=== PATIENT | female | born 1940 | race Caucasian/White ===

== ENCOUNTER 2021-12-29 14:34 | Inpatient (IN) | payer MEDICARE, BC ==
[~2021-12-29] VITALS: Ht 152.4 cm; Wt 58.9 kg
[2021-12-29 14:00] VITALS: BP 153/91
[2021-12-29] MEDS ORDERED: IODIXANOL 320 MG/ML 100 ML VIAL. ONE (14:38)
[2021-12-29] MEDS ORDERED: LIDOCAINE 1% Multi-Dose 20 ML VIAL. ONE (14:38)
[2021-12-29 14:39] VITALS: BP 198/84
[2021-12-29] MEDS ORDERED: fentaNYL PF VIAL 100 MCG/2 ML VIAL ONE (14:52)
[2021-12-29] MEDS ORDERED: MIDAZOLAM HCL/PF 2 MG/2 ML VIAL. ONE (14:53)
[2021-12-29] MEDS ORDERED: Trulicity SQ (15:00)
[2021-12-29] MEDS ORDERED: PANT40TA77 PO (15:00)
[2021-12-29] MEDS ORDERED: EZET10TA20 PO (15:00)
[2021-12-29] MEDS ORDERED: CRESTOR40 MG PO (15:00)
[2021-12-29] MEDS ORDERED: AMLO2.5T5 PO (15:00)
[2021-12-29] MEDS ORDERED: IBAN150T20 PO (15:00)
[2021-12-29] MEDS ORDERED: SERT50TA PO (15:00)
[2021-12-29] MEDS ORDERED: ASPI-630 PO (15:00)
[2021-12-29] MEDS ORDERED: CHOL200044 PO (15:00)
[2021-12-29] MEDS ORDERED: GABA600T7 PO (15:00)
[2021-12-29] MEDS ORDERED: FAMO20TA5 PO (15:00)
[2021-12-29] MEDS ORDERED: MIDAZOLAM HCL/PF 2 MG/2 ML VIAL. IV ONE (15:15)
[2021-12-29] MEDS ORDERED: IODIXANOL 320 MG/ML 100 ML VIAL. IART ONE (15:15)
[2021-12-29] MEDS ORDERED: LIDOCAINE 1% Multi-Dose 20 ML VIAL. INJ ONE (15:15)
[2021-12-29] MEDS ORDERED: fentaNYL PF VIAL 100 MCG/2 ML VIAL IV ONE (15:15)
[2021-12-29 15:38] VITALS: BP 147/72
--- NOTE | 2021-12-29 17:04 | CARD ---
MR#: [id number] Date of Study: 12/29/2021 Ordering Physician: MANJEET CALLAWAY, Referring Physician: MANJEET CALLAWAY, Tech: Shantel Peterson RTR APPROVED REPORT Technologist: Shantel Peterson RTR Nurse: Cleopatra Chacon RN Procedure(s) performed: Fluoro time: 6.9 min Dose: 20.9 gymc2 contrast: 72cc visi moderate sedation: 39 min INDICATION The indication(s) include : unstable angina . CSHA Clinical Frailty Scale CSHA Clinical Frailty Scale: Managing Well Heart Failure Heart Failure: No PROCEDURE NARRATIVE Clinical information: 81-year-old woman with a past medical history of bypass and PCI to the RCA presents for chest discomf ort. Procedure details: After appropriate informed consent the right groin was prepped and draped in usual sterile fashion. Under 1% lidocaine local anesthesia a 6 Guamanian sheath was placed in the right common femoral artery. Due to significant prior catheterizations and fibrosis the insertion of the sheath was difficult and required dilation with serial 4 Guamanian and 5 Guamanian dilators. Ultimately, a 6 Guamanian sheath was johan nirmala. Next diagnostic angiography was then performed with a JL 3.5, JR4, PHANI catheters. Left ventric ular end-diastolic pressure was obtained with a pigtail catheter pullback was performed after left ve ntriculography. At case completion the catheters and sheaths were removed and hemostasis was achieve d via a Angio-Seal device. Findings: LVEDP 10 mmHg No LV to aortic pullback gradient Left ventriculogram demonstrates normal LV systolic function with an EF of greater than 60%. Coronary angiography: Left main is a long moderate caliber vessel with normal angiographic appearance LAD is a moderate caliber vessel with a proximal 100% occlusion at the site of a previous stent Left circumflex is a small caliber nondominant vessel with a proximal 100% occlusion of a previously placed stent RCA is a large-caliber dominant vessel with patent stents in the midsegment with moderate diffuse dis ease of up to 40 to 50%. Bypass angiography: GARCIA to the LAD is widely patent without anastomotic stenosis SVG sequential graft to the ramus and OM1 is patent without anastomotic stenosis Conclusion 1. Normal left-sided filling pressures 2. Normal LV systolic function, EF greater than 60% 3. Three-vessel coronary artery disease with 3 of 3 bypass grafts patent. Recommendations Aggressive Medical Therapy Signed by : Manjeet Callaway, Electronically Approved : 12/29/2021 17:03:27
[2021-12-29 19:00] VITALS: BP 127/60
[2021-12-29] MEDS ORDERED: GABAPENTIN 300 MG CAPSULE. PO PRN (21:45)
[2021-12-29] MEDS ORDERED: FAMOTIDINE 20 MG TABLET. PO SCH (22:00)
[2021-12-29] MEDS ORDERED: EZETIMIBE 10 MG TABLET. PO SCH (22:00)
[2021-12-29] MEDS: PANTOPRAZOLE 40 MG TABLET.DR. PO SCH (22:00)
[2021-12-29] MEDS ORDERED: ATORVASTATIN CALCIUM 40 MG TABLET. PO SCH (22:00)
[2021-12-29 23:53] VITALS: BP 129/60
[2021-12-30 03:07] VITALS: BP 129/61
[2021-12-30] MEDS: PANTOPRAZOLE 40 MG TABLET.DR. PO SCH (05:53)
[2021-12-30 07:00] VITALS: BP 109/57
[2021-12-30] MEDS ORDERED: ASPIRIN CHEWABLE 81 MG TABLET. PO SCH (09:00)
[2021-12-30] MEDS ORDERED: SERTRALINE 50 MG TABLET. PO SCH (09:00)
[2021-12-30] MEDS ORDERED: CHOLECALCIFEROL (VITAMIN D3) 1,000 UNIT TABLET PO SCH (09:00)
[2021-12-30 11:00] VITALS: BP 120/56
--- NOTE | 2021-12-30 12:16 | PDOC ---
DIA FAGAN APRN 12/30/21 1216: CARDIO Progress Notes Date and Time Date of Service 12/30/21 Time of Evaluation 1215 Subjective Subjective: No Chest Pain, No shortness of breath, No Dizziness Vitals Vitals Vital Signs Date Time Temp Pulse Resp B/P (MAP) Pulse Ox O2 Delivery O2 Flow Rate FiO2 12/30/21 11:00 98.6 67 17 120/56 (77) 96 Room Air 98.6 Weight Weight [ ] Input and Output Intake and Output Intake and Output 12/30/21 07:00 Intake Total 120 ml Output Total 200 ml Balance -80 ml Intake Oral 120 ml Output Urine Total 200 ml Laboratory Labs Laboratory Tests Test 12/29/21 16:14 12/29/21 20:27 12/30/21 07:47 Glucose (Fingerstick) 103 mg/dL (70-99) 149 mg/dL (70-99) 126 mg/dL (70-99) Physical Exam HEENT: Neck Supple W Full Motion Chest: Symmetric Heart: RRR Abdomen: Soft N/T Extremities: No Edema Neurology: alert, oriented, follow commands Assessment Assessment 1. Chest pain; AMI ruled out 2. CAD s/p remote CABG x3 and subsequent PCI/stent to the RCA. LHC showed 3/3 grafts patent and patent previously placed RCA stent. No lesions needing intervention were noted. 3. AFIB s/p previous ablation therapy. Presently SR 4. Hypertension; controlled 5. Hyperlipidemia; statin 6. Diabetes, II Recommendations Secondary prevention Risk stratification modification GI followup Follow up with cardiology up discharge Justicifation of Admission Dx: Justifications for Admission: Justification of Admission Dx: Yes Comments: Chest pain CAD MANJEET ERWIN MD 12/30/211956: DIA FAGAN APRN Dec 30, 2021 12:16 MANJEET ERWIN MD Dec 30, 2021 19:57
--- NOTE | 2021-12-30 12:56 | NUR ---
SS following for discharge planning. SS reviewed pt chart and discussed with pt RN. Pt is from home and is currently on room air. Discharge order on the chart for home with self care.
--- NOTE | 2021-12-30 13:03 | SSS ---
DATE OF SERVICE: 12/30/2021 ADMIT DATE: 12/29/2021 SHORT STAY HISTORY OF PRESENT ILLNESS: The patient is an 81-year-old female patient who was admitted to [facility] with a complaint of chest pain that awakened her from sleep. She was extensively investigated there with an EKG as well as 3 sets of cardiac enzymes that ruled out acute myocardial infarction. 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 She apparently underwent the catheterization. Left heart catheterization revealed that the patient has normal left-sided filling pressure, normal left ventricular systolic function. Ejection fraction greater than 60%. Three-vessel coronary artery disease with 3/3 bypass grafts patent and the recommendation for aggressive medical therapy. PHYSICAL EXAMINATION: GENERAL: When I saw her today, she looked well and was sitting on the edge of the bed, eating her lunch comfortably, in no apparent distress. She has no further episode of chest pain. When I examined her, she looked well. VITAL SIGNS: Her heart rate was 67, blood pressure 120/56, temperature was 98.6, respiratory rate was 17 and oxygen saturation was 96% on room air. HEAD, EYES, EARS, NOSE, AND THROAT: Normocephalic, atraumatic. NECK: Supple. HEART: Normal first and second heart sounds. No gallop, rub or murmur. CHEST: Clear to auscultation, no crepitation or rhonchi. ABDOMEN: Distended, soft, nontender. NEUROLOGIC: She was grossly intact. She is ambulating without assistance or assistive devices. Her blood sugar was well controlled. MEDICATIONS: She was discharged home to continue on amlodipine 2.5 mg once a day, aspirin 81 mg once a day, cholecalciferol vitamin D 50 mcg twice a day, Zetia 10 mg once a day, famotidine 20 mg at bedtime, gabapentin 600 mg 4 times a day, ibandronate sodium 150 mg once a month, Protonix 40 mg twice a day, Crestor 40 mg at bedtime, sertraline for Zoloft 50 mg once a day and Trulicity subcutaneously once a day. FINAL DISCHARGE DIAGNOSES: Chest pain, acute myocardial infarction ruled out. She has left heart catheterization with patent graft. Other problems include: 1. Hypertension. 2. Hyperlipidemia. 3. Type 2 diabetes mellitus. 4. Osteoporosis. 5. Gastroesophageal reflux disease. ASSESSMENT AND PLAN: The patient was discharged home to follow with the [facility] Cardiology team as an outpatient in [place]. CAPO DR: June TID: [id number]
--- NOTE | 2021-12-30 13:13 | NUR ---
Discharge Note: PT DISCHARGED HOME WITH SELF CARE. PT LEFT FACILITY VIA PRIVATE VEHICLE WITH DAUGHTER AT 1300. PT STABLE AND ALERT UPON DISCHARGE. PT PIV REMOVED FROM L HAND WITHOUT COMPLICATIONS, BANDAGE APPLIED. PT TELE MONITOR REMOVED. PT EDUCATED ABOUT DISCHARGE INSTRUCTIONS, DISHARGE MEDICATIONS, AND FOLLOW-UP CARE INSTRUCTIONS, NO CONCERNS VOICED. PT LEFT WITH ALL PERSONAL BELONGINGS. JANE MAYERS[address] [place] [address] Discharge instructions and discharge home medications reviewed with Patient and a copy given. All questions have been answered and understanding verbalized.
[2022-01-28] MEDS ORDERED: IBANDRONATE SODIUM PO SCH (09:00)
== END 2021-12-30 13:00 | disposition home or self-care (01) | DRG 287 ==
LOC: CCL 14:34 → 6 SOUTH 16:00
PROVIDERS: ADMIT Internal Medicine; ATTEND Internal Medicine
PROC: 4A023N7 Measurement of Cardiac Sampling and Pressure, Left Heart, Percutaneous Approach (ICD-10-PCS; principal; 2021-12-29)
PROC: B2151ZZ Fluoroscopy of Left Heart using Low Osmolar Contrast (ICD-10-PCS; 2021-12-29)
PROC: B2111ZZ Fluoroscopy of Multiple Coronary Arteries using Low Osmolar Contrast (ICD-10-PCS; 2021-12-29)
PROC: B2131ZZ Fluoroscopy of Multiple Coronary Artery Bypass Grafts using Low Osmolar Contrast (ICD-10-PCS; 2021-12-29)
PROC: B2181ZZ Fluoroscopy of Left Internal Mammary Bypass Graft using Low Osmolar Contrast (ICD-10-PCS; 2021-12-29)
DX: I25.10 Atherosclerotic heart disease of native coronary artery without angina pectoris (principal); Z88.8 Allergy status to other drugs, medicaments and biological substances; E11.9 Type 2 diabetes mellitus without complications; E78.5 Hyperlipidemia, unspecified; I10 Essential (primary) hypertension; I48.91 Unspecified atrial fibrillation; K21.9 Gastro-esophageal reflux disease without esophagitis; M81.0 Age-related osteoporosis without current pathological fracture
CPT/HCPCS: 93459; G0269; 82962; 99152; 99153; C1769; C1894; J1644; J2250; J3010; J3490; Q9967; G0378